=== PATIENT | male | born 1955 | race Caucasian/White ===

== ENCOUNTER 2019-02-16 00:34 | Emergency (ER) | payer MEDICARE, OTHER ==
[2019-02-16 00:42] VITALS: BP 188/103
[2019-02-16] MEDS ORDERED: 50% Dextrose in Water 50 ML Syringe IVPUSH ONE (01:12)
--- NOTE | 2019-02-16 01:51 | EDM.PDOC ---
ED HPI GENERAL MEDICAL PROBLEM - General Chief Complaint: Laceration Stated Complaint: FACE INJURY Time Seen by Provider: 02/16/19 00:51 Source of Information: Reports: Patient, Family History Limitations: Reports: No Limitations - History of Present Illness INITIAL COMMENTS - FREE TEXT/NARRATIVE: This is a 63-year-old male. He has a history of moving a lot when he sleeps. Tonight as he was sleeping he was jerking and he fell out of bed and struck his face on the side table. He has a very large laceration through his lower lip midline extending down into his chin involving the muscle layers of the lip as well as the chin. He comes to the ER for evaluation. After looking at the laceration this will require a maxillofacial or plastic surgeon to repair. Lower Face/Facial Pain Score (Numeric/FACES): 4 - Related Data Allergies Allergy/AdvReac Type Severity Reaction Status Date / Time tape Allergy Rash Uncoded 03/26/15 10:40 Past Medical History Cardiovascular History: Reports: Bypass, Stents Respiratory History: Reports: COPD Endocrine/Metabolic History: Reports: Diabetes, Type I - Past Surgical History Neurological Surgical History: Reports: Lumbar Spine Musculoskeletal Surgical History: Reports: Other (See Below) Other Musculoskeletal Surgeries/Procedures:: ankle sx Social & Family History - Family History Family Medical History: Noncontributory - Tobacco Use Smoking Status *Q: Never Smoker - Caffeine Use Caffeine Use: Reports: Soda - Recreational Drug Use Recreational Drug Use: No ED ROS GENERAL - Review of Systems Review Of Systems: See Below Constitutional: Denies: Fever, Chills HEENT: Reports: Other (As per history of present illness) Respiratory: Reports: No Symptoms Cardiovascular: Reports: No Symptoms Endocrine: Reports: Other (Insulin-dependent diabetic) GI/Abdominal: Reports: No Symptoms : Reports: No Symptoms Musculoskeletal: Reports: No Symptoms Skin: Reports: Other (As per history of present illness) Neurological: Reports: No Symptoms Psychiatric: Reports: No Symptoms Hematologic/Lymphatic: Reports: No Symptoms ED EXAM, SKIN/RASH Exam: See Below Exam Limited By: No Limitations General Appearance: Alert, WD/WN, Mild Distress Eye Exam: Bilateral Eye: Normal Inspection Ears: Normal External Exam Nose: Normal Inspection Throat/Mouth: Other (His laceration starts at the midline lower lip it is a through and through involving the muscle of the lower lip that extends 7 cm down slightly obliquely in and underneath the chin, he also has a 1 cm laceration of the upper lip, the lower lip laceration is through multiple layers of muscle and is gapping open, looking at the wound he does not appear to have a tooth or jaw fracture) Head: Other (As above) Neck: Supple Respiratory/Chest: No Respiratory Distress GI/Abdominal: Soft Back Exam: Full Range of Motion Extremities: Normal Inspection, Normal Range of Motion Neurological: Alert, Oriented Psychiatric: Normal Affect, Normal Mood Skin: Warm, Dry Course - Vital Signs Last Recorded V/S: Last Vital Signs Temp 95.8 F 02/16/19 00:40 Pulse 76 02/16/19 00:40 Resp 16 02/16/19 00:40 BP 188/103 H 02/16/19 00:40 Pulse Ox 97 02/16/19 00:40 - Orders/Labs/Meds Labs: Laboratory Tests 02/16/19 Range/Units 01:15 POC Glucose 84 (80-115) mg/dL Meds: Medications Discontinued Medications Generic Name Dose Route Start Last Admin Trade Name Marlon PRN Reason Stop Dose Admin Dextrose/Water 25 ml 02/16/19 01:12 02/16/19 01:17 Dextrose 50% In Water IVPUSH 02/16/19 01:13 50 ml ONETIME ONE Administration - Re-Assessments/Exams Free Text/Narrative Re-Assessment/Exam: 02/16/19 01:46 I called [facility] neither of which have a maxillofacial or plastics telephone station installer. They suggested I call [facility] in [place] to see if they have a maxillofacial specialist. When I spoke to the coordinator at [facility] they connected me with Dr. Smith who is a maxillofacial plastics specialist. I explained to him the situation and he is willing to see this patient but they have to travel to [place]. When I spoke to the patient and his they agreed they would travel to [facility] to get this repaired since there is no one here locally that can repair it. We will place a wet dressing over the wounds when does not dry out and fix the dressing there to control the bleeding. Is not appear to have any other acute injuries. He is going to go by private car but we will send the transfer form with the patient and the patient and his are instructed when they didn't [facility] to go to the ER with the paperwork and left the ER individuals know that Dr. Smith is to see him. 02/16/19 01:57 Placed a wet dressing and wrap the patient with Kerlix to keep the dressing in place. Departure - Departure Time of Disposition: 01:51 Disposition: Home, Self-Care 01 Condition: Fair Clinical Impression: Laceration of lower lip, complicated Qualifiers: Encounter type: initial encounter Qualified Code(s): S01.511A - Laceration without foreign body of lip, initial encounter Laceration of vermilion border of upper lip Qualifiers: Encounter type: initial encounter Qualified Code(s): S01.511A - Laceration without foreign body of lip, initial encounter - Discharge Information *PRESCRIPTION DRUG MONITORING PROGRAM REVIEWED*: Not Applicable *COPY OF PRESCRIPTION DRUG MONITORING REPORT IN PATIENT CHA: Not Applicable Instructions: Laceration Care, Adult, [id number] Referrals: PCP,None [Primary Care Provider] - Forms: ED Department Discharge Additional Instructions: Go directly to the [facility] ER in [place], [place], We have given you the address. I spoke with Dr. Smith and he is agreeing to see you and repair your lower lip, please do not eat or drink anything until you see Dr. Smith. Dr. Smith will be able to repair this laceration so please drive safely and do not padron since that will put you at risk for an accident. Return to this ER as needed
== END 2019-02-16 01:58 | disposition home or self-care (01) ==
LOC: JD.ED 00:34
DX: S01.511A Laceration without foreign body of lip, initial encounter (principal); E10.9 Type 1 diabetes mellitus without complications; Z91.09 Other allergy status, other than to drugs and biological substances; Z95.5 Presence of coronary angioplasty implant and graft; W06.XXXA Fall from bed, initial encounter; W22.8XXA Striking against or struck by other objects, initial encounter
CPT/HCPCS: 82962; 96374; 99283; J7060

== ENCOUNTER 2021-02-17 13:42 | Emergency (ER) | payer MEDICARE, OTHER ==
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
[2021-02-17 14:05] VITALS: BP 181/84; PULSE 60
[2021-02-17] MEDS ORDERED: Sodium Chloride 0.9% 10 ML Syringe FLUSH PRN (14:11)
[2021-02-17] MEDS ORDERED: HYDROmorphone 1 MG/ML Syringe IVPUSH ONE (14:11)
[2021-02-17] MEDS ORDERED: Metoclopramide 10 MG/2 ML SDV IVPUSH ONE (14:11)
[2021-02-17 15:02] LABS: HEMOGLOBIN A1C 9.7 %
--- NOTE | 2021-02-17 15:38 | CR ---
Skull: 2 views of the skull were obtained. Comparison: No prior skull study is available. Visualized paranasal sinuses are clear. Surrounding bony structures are intact. No radiopaque foreign object is seen. Impression: 1. Nothing is seen to contraindicate scheduled MRI. Diagnostic code #1
--- NOTE | 2021-02-17 16:16 | MR ---
MRI lumbar spine Technique: T1 weighted axial images were obtained from above the T11-T12 disc through the L5-S1 disc. T2-weighted axial images were obtained from above the T12-L1 disc through the L5-S1 discs. T1, T2 and fat suppressed inversion recovery sagittal images were obtained. Comparison: Prior MRI lumbar spine study of 03/26/15. Findings: T10-T11: Schmorl's node deformities are seen. Posterior disc is fairly well preserved. No central canal stenosis or neural foraminal stenosis is seen. T11-T12: Posterior disc has a planar margin. No central canal stenosis is seen. No neural foraminal stenosis is seen. Slight anterior wedging at T12 is seen which appears chronic. T12-L1: Posterior disc has a concave margin. No central canal stenosis or neural foraminal stenosis is seen. L1-2: Slight circumferential disc bulge is seen. Posterior disc shows a small herniation with disc material extending superiorly. This finding is minimally increased from prior exam. No central canal stenosis or neural foraminal stenosis is seen. L2-3: Disc space narrowing is noted. Diffuse circumferential disc bulge is seen. Disc bulging is noted into both inferior neural foramina. Neural foramen on the right side shows slight compromise upon the exiting nerve root with effacement by a bulging disc outside the neural foramen. Left neural foramen is patent. Central canal is mildly narrowed. Mild degenerative apophyseal change is seen. L3-L4: Posterior disc space narrowing is seen. Slight circumferential disc bulge is noted. Mild degenerative apophyseal change is seen. Disc bulging is noted into both inferior neural foramina. Exiting nerve root on the left side slightly touches a bulging disc outside the neural foramina. Right nerve root is patent where the nerve root exits. No central canal stenosis is seen. L4-L5: Slight posterior disc space narrowing is seen. Very slight posterior disc bulge is noted. Mild disc protrusion is seen with disc extending inferiorly which is similar to prior exam. Mild degenerative apophyseal change is seen. No central canal stenosis is seen. Neural foramina are patent where the nerve roots exit. L5-S1: Slight disc bulge is seen posteriorly. Neural foramina are patent where the nerve roots exit. No central canal stenosis is seen. Diffuse degenerative dehydration change is seen throughout the lumbar and thoracic discs. Conus medullaris and cauda equina show no abnormal signal or mass. Impression: 1. Diffuse degenerative change as noted above. This has slightly progressed from prior exam. 2. Minimal disc herniation is seen at L1-L2 with small amount of disc material extending superiorly. Diagnostic code #2
== END 2021-02-17 16:37 | disposition home or self-care (01) ==
LOC: JD.ED 13:42
DX: M51.16 Intervertebral disc disorders with radiculopathy, lumbar region (principal); J44.9 Chronic obstructive pulmonary disease, unspecified; E03.9 Hypothyroidism, unspecified; E10.9 Type 1 diabetes mellitus without complications; Z91.048 Other nonmedicinal substance allergy status
CPT/HCPCS: 36415; 70250; 72148; 80053; 83036; 85007; 85027; 85652; 86140; 96374; 96375; 99284; J1170; J2765

== ENCOUNTER 2021-02-27 18:44 | Emergency (ER) | payer MEDICARE, OTHER ==
[2021-02-27] MEDS ORDERED: Sodium Chloride 0.9% 10 ML Syringe FLUSH PRN (18:49)
[2021-02-27 19:28] VITALS: BP 120/67; PULSE 65
--- NOTE | 2021-02-27 19:57 | EDM.PDOC ---
ED HPI GENERAL MEDICAL PROBLEM - General Source of Information: Reports: Patient, EMS History Limitations: Reports: Intoxication - History of Present Illness Onset: Sudden Duration: Minutes: Location: Reports: Head Quality: Reports: Sharp Severity: Mild Improves with: Reports: None Worsens with: Reports: None Associated Symptoms: Reports: Headaches. Denies: Chest Pain, Cough, Fever/Chills, Nausea/Vomiting, Shortness of Breath Headache Pain Score (Numeric/FACES): 7 <Roberto Blanton - Last Filed: 02/27/21 20:12> <Diann Stevenson - Last Filed: 02/27/21 21:54> - General Chief Complaint: Trauma Stated Complaint: [facility] Time Seen by Provider: 02/27/21 18:49 - History of Present Illness INITIAL COMMENTS - FREE TEXT/NARRATIVE: The patient presents by [facility] for a fall. They said he had been drinking this afternoon and playing "[employer]." He then fell forward and hit his head. He had no LOC but he was confused after. He has a headache to the left frontal region. He has no numbness or weakness. He has no chest pain, or shortness of breath. He thought he was on a blood thinner but his old records do not confirm this. He has no abdominal pain, nausea or vomiting. (Roberto Blanton) - Related Data Allergies Allergy/AdvReac Type Severity Reaction Status Date / Time tape Allergy Rash Uncoded 02/27/21 18:52 Home Meds: Home Meds Acetaminophen/oxyCODONE [Percocet 325-5 MG] 1 - 2 each PO Q4H PRN #24 tab 02/17/21 [Rx] Diclofenac Sodium [Voltaren] 75 mg PO BIDMEALS #14 tab.cr 02/17/21 [Rx] Fluticasone/Umeclidin/Vilanter [Trelegy Ellipta 100-62.5-25 MCG] 1 puff INH ROLY Y 02/17/21 [History] Insulin Aspart [NovoLOG] 160 units SQ ASDIRECTED 02/17/21 [History] Insulin Glargine,Hum.Rec.Anlog [Toujeo Solostar] 80 units SQ DAILY 02/17/21 [History] Levothyroxine 75 mcg PO ACBREAKFAST 02/17/21 [History] Pantoprazole [ProTONIX] 40 mg PO DAILY 02/17/21 [History] lisinopriL [Lisinopril] 20 mg PO DAILY 02/17/21 [History] polyethylene glycoL 3350 [MiraLAX] 17 gm PO DAILY #1 container 02/17/21 [Rx] traMADol [Ultram] 50 mg PO Q6H PRN 02/17/21 [History] Past Medical History HEENT History: Reports: Hard of Hearing, Impaired Vision Cardiovascular History: Reports: Bypass, Stents Other Cardiovascular History: 2009 Respiratory History: Reports: COPD Gastrointestinal History: Reports: GERD Genitourinary History: Reports: None Musculoskeletal History: Reports: Back Pain, Chronic Neurological History: Reports: None Psychiatric History: Reports: None Endocrine/Metabolic History: Reports: Diabetes, Type I, Hypothyroidism Hematologic History: Reports: None Immunologic History: Reports: None Oncologic (Cancer) History: Reports: None Dermatologic History: Reports: None - Infectious Disease History Infectious Disease History: Reports: Chicken Pox - Past Surgical History HEENT Surgical History: Reports: Adenoidectomy, Tonsillectomy Neurological Surgical History: Reports: Lumbar Spine Musculoskeletal Surgical History: Reports: Other (See Below) Other Musculoskeletal Surgeries/Procedures:: ankle sx. 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[employer]) <Roberto Blanton Last Filed: 02/27/21 20:12> Review of Systems - Review of Systems Review Of Systems: See Below Constitutional: Reports: No Symptoms Eyes: Reports: No Symptoms Ears: Reports: No Symptoms Nose: Reports: No Symptoms Mouth/Throat: Reports: No Symptoms Respiratory: Reports: No Symptoms Cardiovascular: Reports: No Symptoms GI/Abdominal: Reports: No Symptoms Genitourinary: Reports: No Symptoms Musculoskeletal: Reports: No Symptoms Neurological: Reports: Headache <Roberto Blanton - Last Filed: 02/27/21 20:12> ED EXAM, GENERAL - Physical Exam Exam: See Below Exam Limited By: Intoxication General Appearance: Alert, No Apparent Distress Ears: Normal External Exam Nose: Normal Inspection Head: Other (Pain upon palpation to the left forehead) Neck: Normal Inspection, Supple, Non-Tender Respiratory/Chest: No Respiratory Distress, Lungs Clear, Normal Breath Sounds Cardiovascular: Regular Rate, Rhythm, No Edema, No Murmur GI/Abdominal: Soft, Non-Tender, No Organomegaly, No Mass Back Exam: Normal Inspection Extremities: Normal Inspection <Roberto Blanton - Last Filed: 02/27/21 20:12> #1 Interpretation EKG Date: 02/27/21 Time: 20:05 Rhythm: NSR Rate (Beats/Min): 63 [place]: Normal P-Wave: Present QRS: Normal ST-T: Depressed (ST depression and T wave inversion in V1, V2, V3, V4, V5) <Roberto Blanton - Last Filed: 02/27/21 20:12> Course <Roberto Blanton - Last Filed: 02/27/21 20:12> <Diann Stevenson - Last Filed: 02/27/21 21:54> - Vital Signs Text/Narrative:: Patient's orthostatic vital signs were slightly positive with his heart rate going from 61 laying down to 72 standing up. Patient was not having any symptoms at that time. His mucous membranes still appear to be dry. Patient's troponin came back negative. All of his radiology work-up shows no acute disease. His blood alcohol level was twice that of legal. Urine tox screen is negative. The remainder of his lab work is unremarkable. I have not informed the patient he needs to continue hydrating at home and that his problems today are most likely due to being dehydrated with an being intoxicated. Patient and family are aware of these findings. I am discharging home now. (Diann Stevenson) Last Recorded V/S: Last Vital Signs Temp 98.2 F 02/27/21 19:27 Pulse 65 02/27/21 19:27 Resp 18 02/27/21 19:27 BP 120/67 02/27/21 19:27 Pulse Ox 95 02/27/21 19:27 Orthostatic Blood Pressure [ 133/70 Standing] Orthostatic Blood Pressure [ 111/70 Sitting] Orthostatic Blood Pressure [ 124/68 Supine] - Orders/Labs/Meds Orders: Active Orders 24 hr Category Date Time Status Cardiac Monitoring [RC] . DIRECTED Care 02/27/21 18:49 Active EKG Documentation Completion [RC] ASDIRECTED Care 02/27/21 20:01 Active Orthostatic Vital Signs [RC] ASDIRECTED Care 02/27/21 20:40 Active Peripheral IV Care [RC] . DIRECTED Care 02/27/21 18:50 Active Cervical Spine wo Cont [CT] Stat Exams 02/27/21 18:51 Taken Head wo Cont [CT] Stat Exams 02/27/21 18:50 Taken Sodium Chloride 0.9% [Normal Saline] 1,000 ml Med 02/27/21 20:30 Active IV ASDIRECTED Sodium Chloride 0.9% [Saline Flush] Med 02/27/21 18:49 Active 10 ml FLUSH ASDIRECTED PRN Peripheral IV Insertion Adult [OM.PC] Stat Oth 02/27/21 18:49 Ordered EKG 12 Lead [EK] Stat Ther 02/27/21 20:01 Ordered Medication Orders Sodium Chloride (Normal Saline) 1,000 mls @ 150 mls/hr IV ASDIRECTED DIANNA Last Admin: 02/27/21 20:47 Dose: 150 mls/hr Documented by: SHANTI Sodium Chloride (Sodium Chloride 0.9% 10 Ml Syringe) 10 ml FLUSH ASDIRECTED PRN PRN Reason: Keep Vein Open Last Admin: 02/27/21 19:26 Dose: 10 ml Documented by: SHANTI Labs: Laboratory Tests 02/27/21 02/27/21 02/27/21 Range/Units 18:47 18:55 18:55 WBC 5.92 (4.23-9.07) K/mm3 RBC 4.96 (4.63-6.08) M/mm3 Hgb 13.4 L (13.7-17.5) gm/dl Hct 40.8 (40.1-51.0) % MCV 82.3 (79.0-92.2) fl MCH 27.0 (25.7-32.2) pg MCHC 32.8 (32.2-35.5) g/dl RDW Std Deviation 44.9 H (35.1-43.9) fL Plt Count 268 (163-337) K/mm3 MPV 10.7 (9.4-12.3) fl Neut % (Auto) 66.8 (34.0-67.9) % Lymph % (Auto) 18.6 L (21.8-53.1) % [place] % (Auto) 11.5 (5.3-12.2) % Eos % (Auto) 2.7 (0.8-7.0) Baso % (Auto) 0.2 (0.1-1.2) % Neut # (Auto) 3.96 (1.78-5.38) K/mm3 Lymph # (Auto) 1.10 L (1.32-3.57) K/mm3 [place] # (Auto) 0.68 (0.30-0.82) K/mm3 Eos # (Auto) 0.16 (0.04-0.54) K/mm3 Baso # (Auto) 0.01 (0.01-0.08) K/mm3 PT 11.1 (9.7-12.0) SECONDS INR 1.04 APTT 24.5 (21.7-31.4) SECONDS Sodium (136-145) mEq/L Potassium (3.5-5.1) mEq/L Chloride (98-107) mEq/L Carbon Dioxide (21-32) mEq/L Anion Gap (5-15) BUN (7-18) mg/dL Creatinine (0.7-1.3) mg/dL Est Cr Clr Drug Dosing mL/min Estimated GFR (MDRD) (>60) mL/min BUN/Creatinine Ratio (14-18) Glucose (70-99) mg/dL Calcium (8.5-10.1) mg/dL Total Bilirubin (0.2-1.0) mg/dL AST (15-37) U/L ALT (16-63) U/L Alkaline Phosphatase (46-116) U/L Troponin I (0.00-0.056) ng/mL Total Protein (6.4-8.2) g/dl Albumin (3.4-5.0) g/dl Globulin gm/dL Albumin/Globulin Ratio (1-2) Urine Opiates Screen (OOCBKG=609) Ur Buprenorphine Scrn (CUTOFF=10) Ur Oxycodone Screen (EPY1BB=652) Urine Methadone Screen (VEB2IA=382) Ur Propoxyphene Screen (UEDVTJ=135) Ur Barbiturates Screen (IKMHGH=332) Ur Tricyclics Screen (FZNGVP=115) Ur Phencyclidine Scrn (CUTOFF=25) Ur Amphetamine Screen (DOJRJR=709) U Methamphetamines Scrn (TPBGSW=695) U Benzodiazepines Scrn (RLWTVR=169) U Cocaine Metab Screen (AJYEOJ=459) U Marijuana (THC) Screen (CUTOFF=50) Ethyl Alcohol (0.00) gm% SARS-CoV-2 RNA (GREGORY) Negative (NEGATIVE) 02/27/21 02/27/21 02/27/21 Range/Units 18:55 18:55 19:07 WBC (4.23-9.07) K/mm3 RBC (4.63-6.08) M/mm3 Hgb (13.7-17.5) gm/dl Hct (40.1-51.0) % MCV (79.0-92.2) fl MCH (25.7-32.2) pg MCHC (32.2-35.5) g/dl RDW Std Deviation (35.1-43.9) fL Plt Count (163-337) K/mm3 MPV (9.4-12.3) fl Neut % (Auto) (34.0-67.9) % Lymph % (Auto) (21.8-53.1) % [place] % (Auto) (5.3-12.2) % Eos % (Auto) (0.8-7.0) Baso % (Auto) (0.1-1.2) % Neut # (Auto) (1.78-5.38) K/mm3 Lymph # (Auto) (1.32-3.57) K/mm3 [place] # (Auto) (0.30-0.82) K/mm3 Eos # (Auto) (0.04-0.54) K/mm3 Baso # (Auto) (0.01-0.08) K/mm3 PT (9.7-12.0) SECONDS INR APTT (21.7-31.4) SECONDS Sodium 143 (136-145) mEq/L Potassium 4.0 (3.5-5.1) mEq/L Chloride 108 H (98-107) mEq/L Carbon Dioxide 21 (21-32) mEq/L Anion Gap 18.0 H (5-15) BUN 10 (7-18) mg/dL Creatinine 1.1 (0.7-1.3) mg/dL Est Cr Clr Drug Dosing 73.65 mL/min Estimated GFR (MDRD) > 60 (>60) mL/min BUN/Creatinine Ratio 9.1 L (14-18) Glucose 240 H (70-99) mg/dL Calcium 8.9 (8.5-10.1) mg/dL Total Bilirubin 0.4 (0.2-1.0) mg/dL AST 28 (15-37) U/L ALT 64 H (16-63) U/L Alkaline Phosphatase 119 H (46-116) U/L Troponin I < 0.017 (0.00-0.056) ng/mL Total Protein 7.7 (6.4-8.2) g/dl Albumin 3.2 L (3.4-5.0) g/dl Globulin 4.5 gm/dL Albumin/Globulin Ratio 0.7 L (1-2) Urine Opiates Screen Negative (JHMTTK=282) Ur Buprenorphine Scrn Negative (CUTOFF=10) Ur Oxycodone Screen Negative (EPS9KE=874) Urine Methadone Screen Negative (LYH3PR=519) Ur Propoxyphene Screen Negative (FXNNYV=986) Ur Barbiturates Screen Negative (CRZKDQ=639) Ur Tricyclics Screen Negative (HBPCIB=324) Ur Phencyclidine Scrn Negative (CUTOFF=25) Ur Amphetamine Screen Negative (CKZVCP=214) U Methamphetamines Scrn Negative (JKORIN=748) U Benzodiazepines Scrn Negative (ROGGBR=622) U Cocaine Metab Screen Negative (ZBAUYT=737) U Marijuana (THC) Screen Negative (CUTOFF=50) Ethyl Alcohol 0.16 (0.00) gm% SARS-CoV-2 RNA (GREGORY) (NEGATIVE) Meds: Medications Generic Name Dose Route Start Last Admin Trade Name Freq PRN Reason Stop Dose Admin Sodium Chloride 1,000 mls @ 150 mls/hr 02/27/21 20:30 02/27/21 20:47 Normal Saline IV 150 mls/hr ASDIRECTED DIANNA Administration Sodium Chloride 10 ml 02/27/21 18:49 02/27/21 19:26 Sodium Chloride 0.9% 10 Ml Syringe FLUSH 10 ml ASDIRECTED PRN Administration Keep Vein Open - Re-Assessments/Exams Free Text/Narrative Re-Assessment/Exam: 02/27/21 19:53 A trauma alert was called. I went right into the room. The patient had a headache to the left side of his head. He had a c-collar on and he was on a backboard. I ordered a CT of his head and cervical spine. I also ordered some labs. His CBC looks good. His PT and INR were normal. His anion gap was elevated at 18. His glucose is 240. His ALT is elevated at 64. His alk phos is elevated at 119. His UDS is negative. His ETOH is 0.16. His COVID [address] of his cervical spine shows no acute findings and no cervical spine fracture or dislocation. The CT of his head shows no intracranial hemorrhage. No skull fracture. Minor left frontal scalp contusion. No foreign body. Cerebral atrophy. 02/27/21 20:01 I cleared his C-spine. He says he was falling over and felt it coming like he was going to pass out. I will get an EKG. 02/27/21 20:13 The EKG was not normal. It shows ST depression and T wave inversion in V1-V5. There was changes similar to this on a stress test in 2016 but not that pronounced. I have ordered a troponin. It is changes of shift. Dr Stevenson to take over. (Roberto Blanton) Departure <Roberto Blanton - Last Filed: 02/27/21 20:12> - Departure Time of Disposition: 21:49 Condition: Good <Diann Stevenson - Last Filed: 02/27/21 21:54> - Departure Disposition: Home, Self-Care 01 Clinical Impression: Dehydration, Alcohol intoxication, Lightheadedness - Discharge Information Instructions: Alcohol Intoxication, [id number], Dehydration, Adult, [id number], Dizziness, [id number] Referrals: PCP,None [Primary Care Provider] - Bhavin Avila MD [Physician] - Forms: ED Department Discharge Additional Instructions: Increase nonalcoholic fluids. In the future when you drink 1 cup of alcohol you need 1 cup of water. Return to ER symptoms worse. Follow-up with bpm developer for further evaluation and work-up. Sepsis Event Note (ED) - Evaluation Sepsis Screening Result: No Definite Risk <Roberto Blanton - Last Filed: 02/27/21 20:12> - Focused Exam Vital Signs: Vital Signs Temp Pulse Resp BP Pulse Ox 02/27/21 19:27 98.2 F 65 18 120/67 95 02/27/21 18:50 97.9 F 68 19 139/66 97 - My Orders Last 24 Hours: My Active Orders 02/27/21 20:40 Orthostatic Vital Signs [RC] ASDIRECTED - Assessment/Plan Last 24 Hours: My Active Orders 02/27/21 20:40 Orthostatic Vital Signs [RC] ASDIRECTED
[2021-02-27] MEDS ORDERED: Sodium Chloride 0.9% 1,000 ML IV SCH (20:30)
--- NOTE | 2021-02-28 12:17 | CT ---
Head CT Technique: Multiple axial sections through the brain were obtained. Intravenous contrast was not utilized. Reconstructed coronal and sagittal images were obtained. Comparison: Prior MRI brain study of 03/16/17, no prior head CT study is available. Findings: Ventricles along with basal cisterns and sulci over the convexities are within normal limits for the patient's age. Minimal diminished density is noted within the periventricular white matter which is compatible with minimal small vessel ischemic demyelination change. No other abnormal parenchymal densities are seen. No midline shift or mass-effect is seen. Bone window settings were obtained. Minimal retention cyst is noted within the left maxillary sinus. Minimal mucosal thickening is seen within the anterior ethmoid sinuses. Mastoid sinuses appear without acute abnormality. No acute calvarial abnormality is appreciated. Atherosclerotic calcification is noted within the carotid siphon and within the vertebral vessels. Minimal soft tissue swelling is seen within the left frontal scalp. Impression: 1. Mild senescent change. 2. Minimal sinus findings believed to be chronic. 3. No acute intracranial abnormality is appreciated. Diagnostic code #2 I agree with preliminary report from [facility], finalized on 02/27/21, 8:30 PM CDT, code 1
--- NOTE | 2021-02-28 13:07 | CT ---
CT cervical spine Technique: Multiple axial sections were obtained from above C1 inferiorly to T1. Reconstructed coronal and sagittal images were obtained. Comparison: No prior cervical spine imaging is available. Findings: Slight posterior and minimal anterior spurring is noted at C5-6 and C6-7. Mild scattered degenerative apophyseal change is noted. No central canal stenosis or neural foraminal stenosis is seen. Visualized lung apices are clear. Minimal mucosal thickening is seen inferiorly within the right maxillary sinus most likely representing a minimal retention cyst. No discrete fracture or subluxation is identified. Impression: 1. Minimal degenerative change. 2. No acute fracture or subluxation is seen. Diagnostic code #2 I agree with preliminary report from [facility], finalized on 02/27/21, 8:27 PM CDT, code 1
== END 2021-02-27 22:01 | disposition home or self-care (01) ==
LOC: JD.ED 18:44
DX: E86.0 Dehydration (principal); F10.129 Alcohol abuse with intoxication, unspecified; Y90.6 Blood alcohol level of 120-199 mg/100 ml; J44.9 Chronic obstructive pulmonary disease, unspecified; K21.9 Gastro-esophageal reflux disease without esophagitis; E10.9 Type 1 diabetes mellitus without complications; E03.9 Hypothyroidism, unspecified; Z79.899 Other long term (current) drug therapy; Z20.822 Contact with and (suspected) exposure to COVID-19; Z91.048 Other nonmedicinal substance allergy status
CPT/HCPCS: 36415; 70450; 72125; 80053; 80306; 80307; 84484; 85025; 85610; 85730; 93005; 99284; J7030; U0002

== ENCOUNTER 2022-04-04 11:56 | Emergency (ER) | payer MEDICARE, OTHER ==
[2022-04-04 12:23] VITALS: BP 154/79; PULSE 65
[2022-04-04] MEDS ORDERED: Ketorolac 60 MG/2 ML SDV IM ONE (12:45)
[2022-04-04] MEDS ORDERED: Orphenadrine 100 MG Tab.ER PO ONE (12:45)
== END 2022-04-04 15:00 | disposition home or self-care (01) ==
LOC: JD.ED 11:56
DX: M54.41 Lumbago with sciatica, right side (principal); M54.42 Lumbago with sciatica, left side; J44.9 Chronic obstructive pulmonary disease, unspecified; K21.9 Gastro-esophageal reflux disease without esophagitis; E10.9 Type 1 diabetes mellitus without complications; E03.9 Hypothyroidism, unspecified; Z91.048 Other nonmedicinal substance allergy status; Z79.899 Other long term (current) drug therapy
CPT/HCPCS: 96372; 99283; A9270; J1885

== ENCOUNTER 2022-04-06 09:13 | Emergency (ER) | payer MEDICARE, OTHER ==
[2022-04-06] MEDS ORDERED: Ondansetron 4 MG/2 ML SDV IVPUSH ONE (09:49)
[2022-04-06] MEDS ORDERED: Sodium Chloride 0.9% 10 ML Syringe FLUSH PRN ×2 (09:49→09:57)
[2022-04-06] MEDS ORDERED: HYDROmorphone 1 MG/ML Syringe IVPUSH ONE (09:50)
[2022-04-06] MEDS ORDERED: Iopamidol 612 MG/ML 100 ML Bottle IVPUSH ONE (09:57)
[2022-04-06] MEDS ORDERED: Sodium Chloride 0.9% 1,000 ML IV SCH (10:00)
[2022-04-06 10:42] LABS: CORONAVIRUS COVID-19 NAA POSITIVE (NEGATIVE)
[2022-04-06] MEDS ORDERED: Insulin Regular, Human 100 Units/ML 3 ML Vial SUBCUT ONE (11:26)
[2022-04-06] MEDS ORDERED: Sodium Chloride 0.9% 1,000 ML IV ONE (11:26)
[2022-04-06] MEDS ORDERED: Calcium Gluconate 10% 1 GM/10 ML SDV IVPUSH ONE (11:27)
[2022-04-06] MEDS ORDERED: Sodium Bicarbonate 8.4% 50 MEQ/50 ML Syringe IVPUSH ONE (11:27)
[2022-04-06] MEDS ORDERED: LORazepam 2 MG/ML SDV IVPUSH ONE (11:30)
[2022-04-06] MEDS ORDERED: cefTRIAXone 1 GM in Sodium Chloride 0.9% 100 ML IV ONE (12:21)
[2022-04-06] MEDS ORDERED: Lactated Ringers 1,000 ML IV ONE (12:48)
[2022-04-06] MEDS ORDERED: OLANZapine 10 MG Vial IM ONE (13:12)
[2022-04-06] MEDS ORDERED: Etomidate 2 MG/ML 20 ML SDV IVPUSH ONE (13:53)
[2022-04-06] MEDS ORDERED: Rocuronium 50 MG/5 ML Vial IVPUSH ONE (13:53)
[2022-04-06] MEDS ORDERED: propofoL 100 ML IV SCH (14:00)
[2022-04-06 17:20] VITALS: BP 189/80; PULSE 126
== END 2022-04-06 15:12 ==
LOC: JD.ED 09:13
DX: U07.1 COVID-19 (principal); A41.9 Sepsis, unspecified organism; R65.20 Severe sepsis without septic shock; N17.9 Acute kidney failure, unspecified; E10.10 Type 1 diabetes mellitus with ketoacidosis without coma; N39.0 Urinary tract infection, site not specified; N35.819 Other urethral stricture, male, unspecified site; J44.9 Chronic obstructive pulmonary disease, unspecified; E11.9 Type 2 diabetes mellitus without complications; Z91.048 Other nonmedicinal substance allergy status; Z88.8 Allergy status to other drugs, medicaments and biological substances; Z79.899 Other long term (current) drug therapy; Z79.4 Long term (current) use of insulin
CPT/HCPCS: 0241U; 31500; 36415; 36600; 70450; 70450-26; 71045; 71045-26; 74176; 74176-26; 80053; 81001; 82009; 82800; 82803; 82947; 83605; 83690; 83930; 84484; 85025; 86140; 87040; 87086; 93005; 93010; 96361; 96365; 96372; 96375; 99285; 99285-25; J0610; J0696; J1170; J1815-GY; J2060; J2405; J2704; J3490; J7030; J7120

== ENCOUNTER 2022-04-27 14:33 | Emergency (ER) | payer MEDICARE, OTHER ==
[2022-04-27 14:58] VITALS: BP 148/64; PULSE 86
[2022-04-27] MEDS ORDERED: HYDROmorphone 0.5 MG/0.5 ML Syringe IM ONE (15:32)
== END 2022-04-27 17:00 | disposition home or self-care (01) ==
LOC: JD.ED 14:33
DX: M54.41 Lumbago with sciatica, right side (principal); E11.9 Type 2 diabetes mellitus without complications; J44.9 Chronic obstructive pulmonary disease, unspecified; E03.9 Hypothyroidism, unspecified; Z91.048 Other nonmedicinal substance allergy status; Z88.8 Allergy status to other drugs, medicaments and biological substances
CPT/HCPCS: 96372; 99283; J1170

== ENCOUNTER 2022-05-06 11:45 | Emergency (ER) | payer MEDICARE, OTHER ==
[2022-05-06] MEDS ORDERED: Sodium Chloride 0.9% 10 ML Syringe FLUSH PRN (12:47)
[2022-05-06] MEDS ORDERED: Ondansetron 4 MG/2 ML SDV IVPUSH ONE (12:48)
[2022-05-06] MEDS ORDERED: oxyCODONE 5 MG Tab PO ONE (14:55)
[2022-05-06] MEDS ORDERED: Polyethylene Glycol 3350 Powder 17 GM Packet PO ONE (15:07)
[2022-05-06] MEDS ORDERED: traMADol 50 MG Tab PO ONE (15:07)
[2022-05-06 16:06] VITALS: BP 141/69; PULSE 69
== END 2022-05-06 16:00 | disposition home or self-care (01) ==
LOC: JD.ED 11:45
DX: K59.00 Constipation, unspecified (principal); C80.1 Malignant (primary) neoplasm, unspecified; C79.51 Secondary malignant neoplasm of bone; E03.9 Hypothyroidism, unspecified; E13.9 Other specified diabetes mellitus without complications; K21.9 Gastro-esophageal reflux disease without esophagitis; Z79.82 Long term (current) use of aspirin; Z79.899 Other long term (current) drug therapy
CPT/HCPCS: 36415; 74176; 80053; 83735; 84153; 84155; 84165; 85025; 86140; 96374; 99284; A9270; J2405; J3490; 99285

== ENCOUNTER 2022-05-08 10:28 | Emergency (ER) | payer MEDICARE, OTHER ==
[2022-05-08 11:17] VITALS: BP 155/61; PULSE 79
[2022-05-08] MEDS ORDERED: Metoclopramide 10 MG/2 ML SDV IVPUSH ONE (12:17)
[2022-05-08] MEDS ORDERED: HYDROmorphone 1 MG/ML Syringe IVPUSH ONE (12:17)
[2022-05-08 13:28] LABS: ESTIMATED GFR 4 mL/min (>60)
[2022-05-08] MEDS ORDERED: Insulin Regular, Human 100 Units/ML 3 ML Vial SUBCUT ONE (13:51)
[2022-05-08] MEDS ORDERED: fentaNYL 12 MCG/HR Transdermal Patch TRDERM SCH (14:00)
== END 2022-05-08 14:42 | disposition home or self-care (01) ==
LOC: JD.ED 10:28
DX: N17.9 Acute kidney failure, unspecified (principal); E11.65 Type 2 diabetes mellitus with hyperglycemia; E13.21 Other specified diabetes mellitus with diabetic nephropathy; J44.9 Chronic obstructive pulmonary disease, unspecified; C90.00 Multiple myeloma not having achieved remission; Z88.8 Allergy status to other drugs, medicaments and biological substances; Z91.048 Other nonmedicinal substance allergy status; Z79.899 Other long term (current) drug therapy; Z79.4 Long term (current) use of insulin; Z86.16 Personal history of COVID-19
CPT/HCPCS: 36415; 80053; 82947; 83735; 83880; 85025; 85652; 86140; 96374; 96375; 99283; A9270; J1170; J1815; J2765; 99285

== ENCOUNTER 2022-05-08 19:46 | Emergency (ER) | payer MEDICARE, OTHER | END 2022-05-08 21:30 | disposition left against medical advice (07) | LOC: JD.ED 19:46 | DX: Z53.21 Procedure and treatment not carried out due to patient leaving prior to being seen by health care provider (principal) ==

== ENCOUNTER 2022-05-09 06:36 | Emergency (ER) | payer MEDICARE, OTHER ==
[2022-05-09] MEDS ORDERED: Ondansetron 4 MG/2 ML SDV IVPUSH ONE (07:05)
[2022-05-09] MEDS ORDERED: Sodium Chloride 0.9% 10 ML Syringe FLUSH PRN (07:05)
[2022-05-09 07:34] LABS: ESTIMATED GFR 5 mL/min (>60)
[2022-05-09] MEDS ORDERED: Insulin Regular, Human 100 Units/ML 3 ML Vial SUBCUT ONE ×2 (08:41→11:45)
[2022-05-09] MEDS ORDERED: LORazepam 2 MG/ML SDV IVPUSH ONE (08:48)
[2022-05-09] MEDS ORDERED: Sodium Chloride 0.9% 250 ML ONE (09:04)
[2022-05-09] MEDS ORDERED: Sodium Chloride 0.9% 250 ML IV SCH ×2 (09:15→09:30)
[2022-05-09 13:07] VITALS: BP 158/73; PULSE 83
== END 2022-05-09 13:30 ==
LOC: JD.ED 06:36
DX: S22.080A Wedge compression fracture of T11-T12 vertebra, initial encounter for closed fracture (principal); S32.010A Wedge compression fracture of first lumbar vertebra, initial encounter for closed fracture; E11.65 Type 2 diabetes mellitus with hyperglycemia; E11.22 Type 2 diabetes mellitus with diabetic chronic kidney disease; N18.6 End stage renal disease; D63.1 Anemia in chronic kidney disease; D69.6 Thrombocytopenia, unspecified; E03.9 Hypothyroidism, unspecified; J44.9 Chronic obstructive pulmonary disease, unspecified; K21.9 Gastro-esophageal reflux disease without esophagitis; E87.1 Hypo-osmolality and hyponatremia; Z99.2 Dependence on renal dialysis; Z91.048 Other nonmedicinal substance allergy status; Z88.8 Allergy status to other drugs, medicaments and biological substances; Z95.1 Presence of aortocoronary bypass graft; Z79.02 Long term (current) use of antithrombotics/antiplatelets; Z79.4 Long term (current) use of insulin; Z79.899 Other long term (current) drug therapy; Z79.82 Long term (current) use of aspirin; Z20.822 Contact with and (suspected) exposure to COVID-19
CPT/HCPCS: 36415; 36430; 36600; 70450; 70450-26; 71045; 71045-26; 80053; 82009; 82803; 82947; 83735; 83930; 84484; 85025; 86850; 86900; 86901; 86922; 93005; 93010; 94762; 96361; 96374; 96375; 99284; 99285-25; J1815-GY; J2060; J2405; J3490; J7050; P9016; U0002